=== PATIENT | male | born 1985 | race Caucasian/White ===

== ENCOUNTER 2016-11-11 10:52 | Emergency (ER) | payer BC ==
[2016-11-11 11:15] VITALS: BP 134/69
--- NOTE | 2016-11-11 11:17 | UC ---
Throat Pain/Nasal [place] HPI - HPI Summary HPI Summary: Patient has had increased sinus pressure ear pain and sore throat. cough present worse in the morning. - History of Current Complaint Chief Complaint: UCRespiratory Stated Complaint: COUGH,SINUS Time Seen by Provider: 11/11/16 11:06 Hx Obtained From: Patient Onset/Duration: Sudden Onset, Lasting Days Severity: Moderate Cough: Nonproductive Associated Signs & Symptoms: Positive: Dysphagia, Sinus Discomfort, Nasal Discharge - Allergies/Home Medications Allergies/Adverse Reactions: Allergies Allergy/AdvReac Type Severity Reaction Status Date / Time environmental Allergy Congestion Uncoded 11/11/16 11:00 Home Medications: Home Medications ARIPiprazole TAB* [Abilify TAB*] 1 tab PO DAILY 11/11/16 [History Confirmed 08/29] DULoxetine DR CAP* [Cymbalta CAP*] 1 tab PO DAILY 11/11/16 [History Confirmed ] PMH/Surg Hx/FS Hx/Imm Hx Previously Healthy: Yes Endocrine History Of: Denies: Diabetes, Thyroid Disease Cardiovascular History Of: Denies: Cardiac Disorders, Hypertension Respiratory History Of: Reports: Asthma Denies: COPD GI/ History Of: Denies: Ulcer - Surgical History Surgical History: Yes Surgery Procedure, Year, and Place: Reconstructive surgery to right cheek - Family History Known Family History: Negative: Blood Disorder - Social History Alcohol Use: Rare Substance Use Type: None Smoking Status (MU): Never Smoked Tobacco Type: Cigars Have You Smoked in the Last Year: No When Did the Patient Quit Smoking/Using Tobacco: 2011 - Immunization History Most Recent Tetanus Shot: 3 yrs ago Review of Systems Skin: Negative Eyes: Negative ENT: Sore Throat, Ear Ache, Nasal Discharge Respiratory: Cough Cardiovascular: Negative Gastrointestinal: Negative Genitourinary: Negative Motor: Negative Neurovascular: Negative Musculoskeletal: Negative Neurological: Headache Psychological: Negative All Other Systems Reviewed And Are Negative: Yes Physical Exam Triage Information Reviewed: Yes Appearance: Well-Nourished, Ill-Appearing, Pain Distress Vital Signs: Initial Vital Signs Temp 97.4 F 11/11/16 10:54 Pulse 69 11/11/16 10:54 Resp 16 11/11/16 10:54 BP 134/69 11/11/16 10:54 Pulse Ox 100 11/11/16 10:54 Vital Signs Reviewed: Yes Eye Exam: Normal Eyes: Positive: Conjunctiva Clear ENT: Positive: Pharynx normal, Pharyngeal erythema, TM bulging - left ear, TM dull - left, TM red - left Dental Exam: Normal Neck exam: Normal Neck: Positive: Supple, Nontender, No Lymphadenopathy Respiratory Exam: Normal Respiratory: Positive: Chest non-tender, Lungs clear, Normal breath sounds Cardiovascular Exam: Normal Cardiovascular: Positive: RRR, No Murmur, Pulses Normal Abdominal Exam: Normal Abdomen Description: Positive: Nontender, No Organomegaly, Soft Bowel Sounds: Positive: Present Neurological Exam: Normal Neurological: Positive: Alert, Muscle Tone Normal Psychological Exam: Normal Skin Exam: Normal Throat Pain/Nasal Course/Dx - Course Course Of Treatment: hx obtained, exam performed, meds reviewed, treated for left otitis media - Differential Dx/Diagnosis Differential Diagnosis/HQI/PQRI: Influenza, Laryngitis, Otitis Media, Pharyngitis, Sinusitis, URI Provider Diagnoses: left otitis media. allergic rhinitis Discharge - Discharge Plan Condition: Stable Disposition: HOME Prescriptions: Amoxicillin/Clavulanate TAB* [Augmentin TAB 875*] 875 mg PO BID #20 tab Patient Education Materials: Otitis Media (ED) Referrals: Janie Stephens NP [Primary Care Provider] - Additional Instructions: 1. Take the medication as prescribe. 2. Use your albuterol twice a day for the next week. 3. Increase your fluid intake and get plenty of rest.
== END 2016-11-11 11:20 | disposition home or self-care (01) ==
LOC: UCCORT 10:52
DX: H66.92 Otitis media, unspecified, left ear (principal); J30.9 Allergic rhinitis, unspecified
CPT/HCPCS: 99212; G0463

== ENCOUNTER 2017-05-08 11:09 | Emergency (ER) | payer BC ==
[2017-05-08 11:44] VITALS: BP 112/84
[2017-05-08] MEDS ORDERED: Ondansetron ODT TAB* 4 MG PO ONE (12:26)
[2017-05-08] MEDS ORDERED: Albuterol/Ipratropium NEB.SOL* Albuterol 2.5 MG/Ipratropium 0.5 MG 3 ML INH ONE (12:49)
--- NOTE | 2017-05-08 12:50 | UC ---
Respiratory Complaint HPI - HPI Summary HPI Summary: patient has seasonal allergies and asthma, he presents with harsh, non controllable cough that leads him to vomit. he is nauseated and complains of SOB , takes ulera daily and albuterol as needed which has not really helped much - History of Current Complaint Chief Complaint: UCRespiratory Stated Complaint: COUGH,NAUSEA Time Seen by Provider: 05/08/17 12:16 Hx Obtained From: Patient Onset/Duration: Sudden Onset, Lasting Days Timing: Constant Severity Initially: Moderate Severity Currently: Severe Character: Cough: Nonproductive Aggravating Factors: Allergens, Exertion, Deep Breaths, Recumbent Position Alleviating Factors: Nothing Associated Signs And Symptoms: Positive: Dyspnea, Wheezing, URI Related History: Seasonal Allergies - Allergies/Home Medications Allergies/Adverse Reactions: Allergies Allergy/AdvReac Type Severity Reaction Status Date / Time environmental Allergy Congestion Uncoded 11/11/16 11:00 Home Medications: Home Medications Albuterol 2.5MG/3ML (0.083%)* [Ventolin 2.5 MG/3 ML NEB.ANDRE*] 2.5 mg INH Q24H PRN 05/08/17 [History Confirmed 05/08/17] Fluticasone NASAL SPRAY 50MCG* [Flonase NASAL SPRAY 50MCG*] 2 spray BOTH NARES DAILY 05/08/17 [History Confirmed 05/08/17] Mometasone/Formoter 100/5 MDI* [Dulera 100/5 MDI*] 2 puff INH BID 05/08/17 [ History Confirmed 05/08/17] PMH/Surg Hx/FS Hx/Imm Hx Previously Healthy: Yes - Surgical History Surgical History: Yes Surgery Procedure, Year, and Place: Reconstructive surgery to right cheek as teen - Family History Known Family History: Positive: Hypertension Negative: Blood Disorder - Social History Alcohol Use: Weekly Substance Use Type: None Smoking Status (MU): Never Smoked Tobacco Type: Cigars Have You Smoked in the Last Year: No When Did the Patient Quit Smoking/Using Tobacco: 2011 - Immunization History Most Recent Tetanus Shot: 3 yrs ago Review of Systems Constitutional: Negative Skin: Negative Eyes: Negative ENT: Negative Respiratory: Shortness Of Breath, Cough Cardiovascular: Negative Gastrointestinal: Negative, Vomiting, Nausea Genitourinary: Negative Motor: Negative Neurovascular: Negative Musculoskeletal: Negative Neurological: Negative Psychological: Negative Is Patient Immunocompromised?: No All Other Systems Reviewed And Are Negative: Yes Physical Exam Triage Information Reviewed: Yes Appearance: Well-Nourished, Ill-Appearing, Pain Distress Vital Signs: Initial Vital Signs Temp 98.1 F 05/08/17 11:38 Pulse 81 05/08/17 11:38 Resp 18 05/08/17 11:38 BP 112/84 05/08/17 11:38 Pulse Ox 100 05/08/17 11:38 Vital Signs Reviewed: Yes Eye Exam: Normal ENT: Positive: Pharyngeal erythema, TMs normal Dental Exam: Normal Neck exam: Normal Neck: Positive: Supple, Nontender, No Lymphadenopathy Respiratory: Positive: Chest non-tender, Respiratory distress - mild, Wheezing, Expiration, Inspiration Cardiovascular Exam: Normal Cardiovascular: Positive: RRR, No Murmur, Pulses Normal Abdominal Exam: Normal Abdomen Description: Positive: Nontender, No Organomegaly, Soft Bowel Sounds: Positive: Present Musculoskeletal Exam: Normal Neurological Exam: Normal Psychological Exam: Normal Skin Exam: Normal UC Diagnostic Evaluation - Laboratory O2 Sat by Pulse Oximetry: 100 Respiratory Course/Dx - Course Course Of Treatment: hx obtained, exam performed ,meds reviewed, neb treatement given, treated for asthma exacerbation, zofran given with god results - Differential Dx/Diagnosis Differential Diagnosis/HQI/PQRI: Asthma, Bronchitis, Laryngitis, Lower Resp Infection, Sinusitis Provider Diagnoses: seasonal allergies,. asthma. nausea/vomiting Discharge - Discharge Plan Condition: Stable Disposition: HOME Prescriptions: predniSONE TAB* [Deltasone TAB*] 40 mg PO DAILY #14 tab Patient Education Materials: Bronchospasm (ED) Additional Instructions: 1. Use the prednisone as prescribed. 2. Continue with Dulera and albuterol inhalers 3. I recommend a daily Zyzol for the allegy symptoms. 4. Follow up with any unresolved symptoms.
== END 2017-05-08 13:38 | disposition home or self-care (01) ==
LOC: UCCORT 11:09
DX: J45.909 Unspecified asthma, uncomplicated (principal); R11.2 Nausea with vomiting, unspecified; J30.2 Other seasonal allergic rhinitis
CPT/HCPCS: 87651; 99212; A9270-GY; G0463

== ENCOUNTER 2017-11-23 13:16 | Emergency (ER) | payer BC ==
[2017-11-23 13:46] VITALS: BP 136/74
--- NOTE | 2017-11-23 13:50 | UC ---
Bite Injury/Animal HPI - HPI Summary HPI Summary: PT WAS PLAYING TUG WITH HIS DOG AND HIS RIGHT HAND WAS ACCIDENTLY BITTEN. THIS AM THE SITE TURNED RED AND STARTED TO SWELL. NO LIMITED ROM. LAST TETANUS WAS LESS THAN 10 YEARS AGO. - History of Current Complaint Hx Obtained From: Patient Onset/Duration: Gradual Onset Type of Bite: Animal - DOG Has Animal Been Immunized?: Yes Aggravating Factor(s): Nothing Alleviating Factor(s): Nothing Associated Signs And Symptoms: Positive: Erythema, Swelling. Negative: Fever, Numbness/Tingling, Limited ROM Animal Available for Observation: Yes <Meme Holbrook - Last Filed: 11/23/17 14:20> <Karmen Sanchez - Last Filed: 11/23/17 15:10> - History of Current Complaint Stated Complaint: DOG BITE Time Seen by Provider: 11/23/17 13:27 - Allergies/Home Medications Allergies/Adverse Reactions: Allergies Allergy/AdvReac Type Severity Reaction Status Date / Time environmental Allergy Congestion Uncoded 11/11/16 11:00 Home Medications: Home Medications Ibuprofen 600 mg PO Q8H 11/23/17 [History Confirmed 11/23/17] PMH/Surg Hx/FS Hx/Imm Hx Respiratory History: Asthma Psychological History: Anxiety, Depression - Surgical History Surgical History: Yes Surgery Procedure, Year, and Place: Reconstructive surgery to right cheek as teen - Family History Known Family History: Positive: Hypertension Negative: Blood Disorder - Social History Occupation: Employed Full-time Alcohol Use: Weekly Substance Use Type: None Smoking Status (MU): Never Smoked Tobacco Type: Cigars Have You Smoked in the Last Year: No When Did the Patient Quit Smoking/Using Tobacco: 2011 - Immunization History Most Recent Tetanus Shot: 3 yrs ago <Meme Holbrook - Last Filed: 11/23/17 14:20> Review of Systems Constitutional: Negative Skin: Rash - r HAND Eyes: Negative ENT: Negative Respiratory: Negative Cardiovascular: Negative Gastrointestinal: Negative Genitourinary: Negative Motor: Negative Neurovascular: Negative Musculoskeletal: Arthralgia - 3RD MCP Neurological: Negative Psychological: Negative Is Patient Immunocompromised?: No All Other Systems Reviewed And Are Negative: Yes <Meme Holbrook - Last Filed: 11/23/17 14:20> Physical Exam Triage Information Reviewed: Yes Appearance: Well-Appearing Vital Signs Reviewed: Yes Eyes: Positive: Conjunctiva Clear ENT: Positive: Normal ENT inspection Neck: Positive: Supple, Nontender, No Lymphadenopathy Respiratory: Positive: Lungs clear, Normal breath sounds Cardiovascular: Positive: RRR, No Murmur Abdomen Description: Positive: Nontender, No Organomegaly, Soft Bowel Sounds: Positive: Present Musculoskeletal: Positive: ROM Intact Neurological: Positive: Alert Psychological: Positive: Age Appropriate Behavior Skin Exam: Normal, Other - 1 cm laceration 3rd dorsal mcp with surrounding erythema and swelling. area is tender. s/v/m intact with and without resistance. No RUE streaking or adenopathy. <Meme Holbrook - Last Filed: 11/23/17 14:20> Vital Signs: Initial Vital Signs Temp 98.9 F 11/23/17 13:39 Pulse 92 11/23/17 13:39 Resp 17 11/23/17 13:39 BP 136/74 11/23/17 13:39 Pulse Ox 98 11/23/17 13:39 <Karmen Sanchez - Last Filed: 11/23/17 15:10> Procedures - Procedure Summary Procedure Summary: time out done. betadine prep. local with 1ml 1% lidocaine. explored, no fb, tendon injury. irrigated large amounts of sterile nacl. sterile technique for procedure. s/v/m intact after. tolerated well. dressed by nursing. <Meme Holbrook - Last Filed: 11/23/17 14:20> Diagnostics - Radiology No standard instances Radiology Interpretation Completed By: Radiologist - sts-see report <Meme Holbrook - Last Filed: 11/23/17 14:20> Bite Injury Course/Dx - Differential Dx/Diagnosis Provider Diagnoses: infected dog bite r hand <Meme Holbrook - Last Filed: 11/23/17 14:20> Discharge - Sign-Out/Discharge Documenting (check all that apply): Discharge/Admit/Transfer - Billing Disposition and Condition Condition: STABLE Disposition: HOME <Meme Holbrook - Last Filed: 11/23/17 14:20> - Billing Disposition and Condition Condition: STABLE Disposition: HOME <Karmen Sanchez - Last Filed: 11/23/17 15:10> - Discharge Plan Condition: Stable Disposition: HOME Prescriptions: Amoxicillin/Clavulanate TAB* [Augmentin TAB 875*] 875 mg PO BID #20 tab Patient Education Materials: Animal Bite (ED), Cellulitis (DC) Referrals: Janie Stephens, [facility] [Primary Care Provider] - 1 Day Attestation Statement User Type: Provider - I was available for consult. This patient was seen by the AMADO. The patient was not presented to, seen by, or examined by me. -Jacki <Karmen Sanchez - Last Filed: 11/23/17 15:10>
[2017-11-23] MEDS ORDERED: Amoxicillin/Clavulanate TAB* 875 MG PO ONE (13:56)
[2017-11-23] MEDS ORDERED: Lidocaine 1% MPF* 2 ML VIAL INJ ONE (14:01)
--- NOTE | 2017-11-23 14:18 | RAD ---
HISTORY: Right third MCP pain, penetrating, COMPARISONS: None VIEWS: 2, Frontal and lateral views of the right hand FINDINGS: BONE DENSITY: Normal. BONES: There is no displaced fracture. JOINTS: There is no arthropathy. ALIGNMENT: There is no dislocation. SOFT TISSUES: There is soft tissue swelling along the dorsum of the right hand at the level of the MCP joints. OTHER FINDINGS: None. IMPRESSION: SOFT TISSUE SWELLING. NO ACUTE OSSEOUS INJURY. IF SYMPTOMS PERSIST, RECOMMEND REPEAT IMAGING.
== END 2017-11-23 14:34 | disposition home or self-care (01) ==
LOC: UCCORT 13:16
DX: S61.411A Laceration without foreign body of right hand, initial encounter (principal); L08.9 Local infection of the skin and subcutaneous tissue, unspecified; W54.0XXA Bitten by dog, initial encounter; Y93.89 Activity, other specified; Y92.009 Unspecified place in unspecified non-institutional (private) residence as the place of occurrence of the external cause; Z87.891 Personal history of nicotine dependence
CPT/HCPCS: 99212; A9270-GY; G0463

== ENCOUNTER 2018-03-01 07:55 | Emergency (ER) | payer BC ==
[2018-03-01 08:11] VITALS: BP 117/70
[2018-03-01] MEDS ORDERED: Ondansetron ODT TAB* 4 MG PO ONE (08:25)
--- NOTE | 2018-03-01 08:39 | UC ---
UC General HPI - HPI Summary HPI Summary: Pt presents wiht sudden onset of nausea and vomiting. Pt denies abdominal pain , diarrhea, GLASS, fever chills. Pt states that the nausea and vomiting began 3 days ago and he vomited 2-3 times per day but has only vomited once yesterday and once tis morning. Oren urinary symptoms - History of Current Complaint Chief Complaint: UCGI Stated Complaint: NAUSEA Time Seen by Provider: 03/01/18 08:15 Hx Obtained From: Patient Onset/Duration: Sudden Onset, Lasting Days, Still Present Timing: Intermittent Episodes Lasting: Onset Severity: Mild Current Severity: Mild Pain Intensity: 0 Associated Signs & Symptoms: Positive: Nausea, Vomiting - Allergy/Home Medications Allergies/Adverse Reactions: Allergies Allergy/AdvReac Type Severity Reaction Status Date / Time environmental Allergy Congestion Uncoded 03/01/18 08:04 PMH/Surg Hx/FS Hx/Imm Hx Previously Healthy: Yes - Surgical History Surgical History: Yes Surgery Procedure, Year, and Place: Reconstructive surgery to right cheek as teen - Family History Known Family History: Positive: Hypertension Negative: Blood Disorder - Social History Occupation: Employed Full-time Lives: With Family Alcohol Use: Weekly Substance Use Type: None Smoking Status (MU): Never Smoked Tobacco Type: Cigars Have You Smoked in the Last Year: No When Did the Patient Quit Smoking/Using Tobacco: 2011 - Immunization History Most Recent Tetanus Shot: 3 yrs ago Review of Systems Constitutional: Fatigue - states he has chronic fatigue Skin: Negative Eyes: Negative ENT: Negative Respiratory: Negative Cardiovascular: Negative Gastrointestinal: Vomiting, Nausea Genitourinary: Negative Motor: Negative Neurovascular: Negative Musculoskeletal: Negative Neurological: Negative Psychological: Negative Is Patient Immunocompromised?: No All Other Systems Reviewed And Are Negative: Yes Physical Exam Triage Information Reviewed: Yes Appearance: Well-Appearing Vital Signs: Initial Vital Signs Temp 98.3 F 03/01/18 08:06 Pulse 91 03/01/18 08:06 Resp 16 03/01/18 08:06 BP 117/70 03/01/18 08:06 Pulse Ox 100 03/01/18 08:06 Vital Signs Reviewed: Yes Eye Exam: Normal ENT Exam: Normal ENT: Positive: Normal ENT inspection Dental Exam: Normal Neck exam: Normal Respiratory Exam: Normal Cardiovascular Exam: Normal Abdominal Exam: Normal Abdomen Description: Positive: Nontender Musculoskeletal Exam: Normal Neurological Exam: Normal Psychological Exam: Normal Skin Exam: Normal Course/Dx - Differential Dx - Multi-Symptom Differential Diagnoses: Other - food poisoning Provider Diagnoses: nausea and vomiting Discharge - Sign-Out/Discharge Documenting (check all that apply): Patient Departure All imaging exams completed and their final reports reviewed: Yes - Discharge Plan Condition: Stable Disposition: HOME Prescriptions: Ondansetron TAB* [Zofran 4 MG Tab*] 4 mg PO Q8H PRN #15 tab PRN Reason: Nausea Patient Education Materials: Acute Nausea and Vomiting (ED) Referrals: Janie Stephens NP [Primary Care Provider] - If Needed - Billing Disposition and Condition Condition: STABLE Disposition: Home
== END 2018-03-01 08:46 | disposition home or self-care (01) ==
LOC: UCCORT 07:55
DX: R11.2 Nausea with vomiting, unspecified (principal)
CPT/HCPCS: 99212; A9270-GY; G0463

== ENCOUNTER 2018-08-04 09:27 | Emergency (ER) | payer BC ==
--- OUTSIDE RECORDS SUMMARY | 2018-08-04 09:45 | XMS REPORT | Continuity of Care Document ---
:1985 Author Organization [facility] Address [address], [place] [id number] Phone Care Team Providers Name Role Phone Dilan Haque NP Unavailable Unavailable Allergies, Adverse Reactions, Alerts Substance Reaction Status No Known Allergies Active Medications Medication Instructions Dosage Effective Dates Status Comments (start - stop) BD Luer-Patricia Syringe 1 Use as directed to - Active mL 20 gauge x 1" draw up estradiol into syringe for weekly intramuscular injections Hypodermic [place] 23 Use this needle to - Active gauge x 1" inject into muscle for weekly estradiol injections Prometrium 200 mg take 1 capsule by - Active capsule oral route every evening estradiol valerate 20 inject 0.5 milliliter - Active mg/mL intramuscular (10mg) by oil intramuscular route every week estradiol 2 mg tablet take 1 Tablet by 1 Tablet - Active Sublingual route 2 times every day spironolactone 100 mg take 1 tablet by oral 100 MG - Active tablet route 2 times every day Cymbalta 60 mg take 1 capsule by 60 MG - Active capsule,delayed oral route every day release Abilify 5 mg tablet take 1 tablet by oral 5 MG - Active route every day Dulera 100 mcg-5 inhale 2 puff by 2.00 puff - Active mcg/actuation HFA inhalation route 2 aerosol inhaler times every day in the morning and evening levocetirizine 5 mg take 1 tablet by oral 5 MG - Active tablet route every day in the evening fluticasone 50 inhale 1 spray by 50 MCG - Active mcg/actuation nasal intranasal route spray,suspension every day in each nostril Problems Condition Effective Dates (start - Clinical Status Comments stop) Transsexualism Endocrine disorder, unspecified Endocrine disorder, unspecified Transsexualism Endocrine disorder, unspecified Transsexualism Transsexualism Endocrine disorder, unspecified [id number] transsexual - Active Procedures Procedure Date ASSAY OF ESTRADIOL ASSAY OF CREATININE ASSAY OF SERUM POTASSIUM BUN ASSAY OF UREA NITROGEN ASSAY OF TOTAL TESTOSTERONE EST PT TG EXP PROB FOCUSED BLOOD PRESSURE Height/Weight OTHER Medical Services Results Test Name Date and Time Measure Units Reference Range Abnormal Flag Status Comments No information Advance Directives Directive Yes / No Effective Date File Name No information Encounters Encounter Practice Location Reason(s) Diagnoses Date Provider Providers Description For Visit Copied on Encounter [facility] [place] Established ocrine disorder, [address]. Provider: [facility] MTF (chief unspecified [address] complaint) [facility], [facility], [address] [place], [address], , [place], [place], [place], [address]. [place], [address]. [id number], tel:+ tel:[phone] tel:[phone] [facility] [place] [address]. [facility] [address] [place], [address] [place], , [place], [address], [id number], [place]. [place] tel:[phone] [facility] [place] disorder, [address]. Provider: [facility] unspecifiedTranss [address] exualism [place] [place], [address] [place], [place], [place], [place], [address], [place], [address]. [id number], [place]. [place] tel:[phone] [facility] [place] disorder, [address]. [place] unspecifiedTranss 8 [address] exualism [place], [address] [place], , [place], [address], [id number], [place]. [place] tel:[phone] [facility] [place] ocrine disorder, [address]. [facility] unspecified [address] [place], [address] [place], [place], [address], [id number], [place]. [place] tel:[phone] Family History Family Member Diagnosis Age At Onset Father Depression/Anxiety Mother Cervical Cancer/Uterine Cancer Father High cholesterol Mother Depression/Anxiety Immunizations Vaccine Date Status Comments No information Payers Payer name Insurance type Covered democrat ID Authorization(s) [facility] [id number] Social History Type Description Quantity Date Captured Comments Alcohol Use Details Unknown Caffeine Use Details Unknown Tobacco Use Status Unknown Smoking Status Never smoker Non-Smoking Tobacco : No Details Available : No Details Available 2018 Use Details Sex Male Vital Signs Date / Height Weight BMI Pulse Blood Temperature Respiratory Body Head BMI Pulse Inhaled Time: Rate Pressure Rate Surface Circumference percentile Ox Ox Area 273.00 118/79 -2019 lbs mm[Hg] 3:50 PM Chief Complaint And Reason For Visit Most recent encounter only, dated '07/22/2018 15:10'. TG Established MTF (chief complaint). Description: Patient is here today for a follow-up. Patient& amp;#39;s gender identity is Female. Patient's preferred pronoun is She , Her, Hers. Patient expresses strong desire for primary and/or secondary sex characteristics to align with gender other thanASAB and incongruence between experienced/expressed gender and primary and/or secondary sex characteristics. Patient is not living as identified gender Patient is living identified gender at home, workand social. Coping with transition: OK, but not great. Sex assigned at was male. Patient's legal sex is male. Feminizing treatment: Estrogen, Spironolactone. Associated symptoms include breast growth , voice change, change in body fat and sexual dysfunction. Pertinent negatives include decreased erection, emotional lability, skin changes, decreased hair growth, change in muscle strength, mood swings and hair changes. The following body organ(s) is/are present: penis, prostate and testes. Reason For Referral Reason For Referral No information Plan Of Treatment Date Type Action Status No information History Of Present Illness Encounter Date Complaint History Of Present Illness TG Established MTF Patient is here today for a follow-up. Patient 's gender identity is Female. Patient's preferred pronoun is She, Her, Hers. Patient expresses strong desire for primary and/or secondary sex characteristics to align with gender other than ASAB and incongruence between experienced/expressed gender and primary and/or secondary sex characteristics. Patient is not living as identified gender Patient is living identified gender at home, work and social. Coping with transition: OK, but not great. Sex assigned at was male. Patient's legal sex is male. Feminizing treatment: Estrogen, Spironolactone. Associated symptoms include breast growth, voice change, change in body fat and sexual dysfunction. Pertinent negatives include decreased erection, emotional lability, skin changes, decreased hair growth, change in muscle strength, mood swings and hair changes. The following body organ(s) is/are present: penis, prostate and testes. Functional Status Date Functional Assessment No information Medications Administered Medication Instructions Dosage Effective Dates (start - stop) Status Comments No information Instructions Date Instruction Additional Information No information Assessments Type Assessment Date assessment Transsexualism assessment Endocrine disorder, unspecified Goals Health Concern Goal Type Priority Status Date No information Medical Equipment Description Device [place] Device Identifier Effective Dates (start - stop ) Status No information Mental Status Date Cognitive Assessment No information Health Concerns Observation Date No information Concern Status Date No information
[2018-08-04 09:52] VITALS: BP 90/74
--- NOTE | 2018-08-04 10:14 | UC ---
FLU HPI - HPI Summary HPI Summary: Patient presents to urgent care stating 5 days of progressive sinus congestion, ear pain, postnasal drip, sore throat, and cough. Patient states yesterday he had 2 episodes of posttussive emesis. Nonbloody nonbilious. Patient states she 's having hard time sleeping mostly because of a cough. Patient did not take any analgesia today but has been taking DayQuil and NyQuil with moderate improvement. 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 Patient did not get the flu vaccine this year. Patient's medications reviewed this visit. Patient states he does have a history of sinus and bronchitis and this feels similar. Pt reports getting anxious when sick. Pt's medications reviewed this visit - History of Current Complaint Chief Complaint: UCGeneralIllness Stated Complaint: FLU LIKE SYMPTOMS Time Seen by Provider: 08/04/18 10:04 Hx Obtained From: Patient Onset/Duration: Gradual Onset Severity Currently: Mild Severity Initially: Mild Pain Intensity: 0 Pain Scale Used: 0-10 Numeric Associated Signs & Symptoms: Positive: Cough, Sore Throat, Nasal Congestion, Headache Related Hx: Possible Flu/Infectious Exposure - Allergy/Home Medications Allergies/Adverse Reactions: Allergies Allergy/AdvReac Type Severity Reaction Status Date / Time environmental Allergy Congestion Uncoded 08/04/18 09:44 Home Medications: Home Medications Dm/Acetaminophen/Doxylamine [Nighttime Cold-Flu Liquid] 1 dose PO ONCE 08/04/18 [History Confirmed 08/04/18] PMH/Surg Hx/FS Hx/Imm Hx Previously Healthy: Yes Respiratory History: Bronchitis - Surgical History Surgical History: Yes Surgery Procedure, Year, and Place: Reconstructive surgery to right cheek as teen - Family History Known Family History: Positive: Hypertension, Non-Contributory Negative: Blood Disorder - Social History Lives: With Family Alcohol Use: None Substance Use Type: None Smoking Status (MU): Never Smoked Tobacco Type: Cigars Have You Smoked in the Last Year: No When Did the Patient Quit Smoking/Using Tobacco: 2011 - Immunization History Most Recent Tetanus Shot: 3 yrs ago Review of Systems All Other Systems Reviewed And Are Negative: Yes Constitutional: Positive: Fever - tactile Skin: Positive: Negative Eyes: Positive: Negative ENT: Positive: Sore Throat, Ear Ache, Nasal Discharge, Sinus Congestion, Sinus Pain/Tenderness Respiratory: Positive: Cough Cardiovascular: Positive: Negative Gastrointestinal: Positive: Negative Genitourinary: Positive: Negative Is Patient Immunocompromised?: No Physical Exam - Summary Physical Exam Summary: Vital Signs Reviewed: Yes A+Ox3, no distress Eyes: Conjunctiva Clear, CARMELA. EOM intact and full ENT: Hearing grossly normal fluid left TM, no erythema right WNL, turbinates inflammed and boggy, + PND mmoist, uvula midline, no exudate, no erythema Neck: Positive: Supple Respiratory: Positive: coarse cough + expiratory wheeze speaking full, easy sentences No retractions slight rhonci right base Cardiovascular: RRR, borderline tachy, nl s1, s2 no m/r CBT <2 sec abd soft + BS nt/nd no guarding, no distension Musculoskeletal Exam: MCKINNON x 4 without difficulty Strength Intact, ROM Intact Neurological: Positive: Alert, + sensation throughout Psychological: Positive: Normal Response To Family Skin: Positive: no rash, no ecchymosis Triage Information Reviewed: Yes Vital Signs: Initial Vital Signs Temp 97.6 F 08/04/18 09:44 Pulse 122 08/04/18 09:44 Resp 20 08/04/18 09:44 BP 90/74 08/04/18 09:44 Pulse Ox 100 08/04/18 09:44 Diagnostics - Radiology No standard instances Radiology Interpretation Completed By: Radiologist - Patient Name: MJ SCOTT Medical Record#: [id number] Ordering Physician: Karmen Sanchez MD Acct.#: [id number] : 1985 Age: 33 Sex: M Location: [facility] Exam Date: 08/04/18 1024 ADM Status: REG ER Order Information: CHEST PA & LAT 2 VWS Accession Number: [id number] CPT: 26328 HISTORY: cough, right sided rhonci COMPARISONS: May 29, 2015 VIEWS: 4: Frontal dual-energy and lateral views of the chest. FINDINGS: CARDIOMEDIASTINAL SILHOUETTE: The cardiomediastinal silhouette is normal. NAIMA: The naima are normal. PLEURA: The costophrenic angles are sharp. No pleural abnormalities are noted. LUNG PARENCHYMA: The lungs are clear. ABDOMEN: The upper abdomen is clear. There is no subphrenic gas. BONES AND SOFT TISSUES: No bone or soft tissue abnormalities are noted. OTHER: None. IMPRESSION: NO ACTIVE CARDIOPULMONARY DISEASE. <Electronically signed by Reece Maciel MD in [place]> 08/04/181043 Dictated By: Reece Maciel MD Dictated Date/Time: 08/04/181043 Transcribed Date/Time: 08/04/181043 Copy to: CC:Danna Arzate MD; Karmen Sanchez MD Imaging - [facility] Imaging - [facility] Imaging - [facility] [address] [facility] [address] [address] ph [phone] ph ([phone]) ph ([phone]) This report is only to be considered final once signed by the Provider(s) as displayed in the "<Electronically Signed by >" field (s). Absence of a signature indicates the report is in a draft status and still needs to be finalized. In the event this document was created by someone other than the signing Provider, the individual initiating the document will be listed in the "Entered by:" or "Dictated by:" romano. 1 of 1 Re-Evaluation - Re-Evaluation First Eval Re-Evaluation Time: 11:03 Change: Improved Comment: Pt states breathing feels improved - wheezing resolved. HR improved. CXR neg acute. will Rx abx, prednisone, tessalon pearls. Pt has albuterol MDI and aerochamber. hydration. secretion precaution. return precautions. declined work note Flu Course/Dx - Course Course Of Treatment: Pt presents with 4 days progressive sinus congestion, PND, cough. Pt with wheezing. 2 episodes post tussive emesis. Pt with increased HR. influenza neg. will check cxr, duoneb and reassess - Differential Dx/Diagnosis Provider Diagnosis: Rhinosinusitis, Acute bronchitis Discharge - Sign-Out/Discharge Documenting (check all that apply): Patient Departure All imaging exams completed and their final reports reviewed: Yes - Discharge Plan Condition: Stable Disposition: HOME Prescriptions: Amoxicillin/Clavulanate TAB* [Augmentin TAB 875*] 875 mg PO BID #20 tab Benzonatate CAP* [Tessalon 100 MG CAP*] 100 mg PO TID #21 cap predniSONE TAB* [Deltasone TAB*] 50 mg PO DAILY #5 tab Patient Education Materials: Acute Bronchitis (ED), Rhinosinusitis (DC) Referrals: Danna Arzate MD [Primary Care Provider] - Additional Instructions: - Stay well hydrated. Drink plenty of non-alcoholic, non-caffinated beverages. - Alternate ibuprofen (Advil, Motrin) 600mg and Tylenol every 3 hours for pain or fever. Take with food. Do NOT take for more than 4-5 days. - These infections are spread by secretions - do NOT share eating or drinking utensils - clean items you share with other people such as cell phones, computer mouse, TV remote, computer tablets,etc. Once you have been antibiotics for 2 days, change your toothbrush and your pillowcase. - get plenty of restful sleep - humidify the air in the room where you sleep - boil water, run a hot steam shower, vaporizer, cups of water by heat register - okay to take over the counter decongestant and cough medication - Take antibiotics and prednisone as prescribed - use your inhaler with the spacer - 2 puffs every 4 hours today and tomorrow, then every 4 hours as needed - Okay to take medication as prescribed for cough. - contact your doctor or return with questions or concern - Billing Disposition and Condition Condition: STABLE Disposition: Home
[2018-08-04 10:20] LABS: Influenza A Molecular NEGATIVE (Negative); Influenza B Molecular NEGATIVE (Negative)
[2018-08-04] MEDS ORDERED: Albuterol/Ipratropium NEB.SOL* Albuterol 2.5 MG/Ipratropium 0.5 MG 3 ML INH ONE (10:23)
== END 2018-08-04 11:14 | disposition home or self-care (01) ==
LOC: UCCORT 09:27
DX: J32.9 Chronic sinusitis, unspecified (principal); J20.9 Acute bronchitis, unspecified; R00.2 Palpitations; R11.10 Vomiting, unspecified; Z91.048 Other nonmedicinal substance allergy status
CPT/HCPCS: 71046; 99212; A9270-GY; G0463